=== PATIENT | female | born 2000 | race Caucasian/White ===

== ENCOUNTER 2018-07-09 23:51 | Emergency (ER) | payer BC, SELFPAY ==
[2018-07-09 23:52] VITALS: BP 112/72; PULSE 80; RESP 18; TEMP 36.7; O2SAT 96; BMI 23.8
--- NOTE | 2018-07-10 00:30 | ED.VIS.GEN ---
History of Present Illness Chief Complaint: Female C/O Informant: Patient Narrative: Stated she placed a tampon this morning at 11:00 if she felt like her. Was given start today. She has not been able to get it out this evening. She feels like it stuck too high. Current severity is mild. She is never had this happen before. Denies any other symptoms. No discharge. She stated that she cannot get out with her fingers. Past Medical History - Allergies and Home Meds Allergies/Adverse Reactions: Allergies No Known Allergies Allergy (Verified 07/09/18 23:54) Primary Care Physician: NOT,DEFINED [Primary Care Provider] - Past Medical History: None Surgical History: noncontributory Lives: With Family Smoking Status: Never smoker Alcohol: None Drugs: None Review of Systems General: Denies: Chills, Fever, Sweats Eyes: Denies: Visual changes - bilaterally, Diplopia ENT: Denies: Rhinorrhea, Sore throat Cardiovascular: Denies: Chest pain, Palpitations Respiratory: Denies: Dyspnea, Cough, Dyspnea on exertion Gastrointestinal: Denies: Abdominal pain, Nausea, Vomiting, Diarrhea, Melena, Hematochezia Genitourinary: Reports: - - Upon stuck in vagina. Denies: Dysuria, Hematuria, Frequency Musculoskeletal: Denies: Back pain, Extremity Pain Skin: Denies: Rash, Wounds Neurological: Denies: Headache, Weakness, Numbness Physical Exam Vital Signs/Narrative: Vital Signs Temp Pulse Resp BP Pulse Ox 07/09/18 23:52 98.0 F 80 18 112/72 96 General: Well nourished, Well developed, No Acute Distress Head: Normocephalic, Atraumatic Eyes: Perrl, EOMI ENT: Moist mucous membranes, No rhinorrhea Neck: Supple, Nontender Cardiovascular: Regular rate, Regular rhythm, No murmurs Respiratory: No distress, CTA bilaterally, Chest nontender Abdomen: Soft, Nontender, Nondistended, Normal bowel sounds : - - Speculum exam shows no foreign body. Cervix and vagina normal. Back: Nontender, Normal Inspection Extremities: Nontender, No edema Skin: Normal color, No rash Neurological: Alert, Oriented x3, Cranial nerves II-XII grossly intact, Normal Strength, Normal Sensation Psychological: Normal affect, Normal Mood Diagnostic/Tx/Re-eval - Medical Decision Making Patient reassured. No foreign body in her vagina. Normal exam. Will be discharged. ED Disposition - Plan for ED Patient: Disposition: Home or Assisted Living Diagnosis: No foreign body found on evaluation Instructions: ED Foreign Body Vaginal Referrals: NOT,DEFINED [Primary Care Provider] -
== END 2018-07-10 00:44 | disposition home or self-care (01) ==
PROVIDERS: Emergency Provider Emergency Medicine
DX: Z00.00 Encounter for general adult medical examination without abnormal findings (principal)
CPT/HCPCS: 99282

== ENCOUNTER 2019-05-08 11:23 | Emergency (ER) | payer BC, SELFPAY ==
[2019-05-08 11:23] VITALS: BP 118/29; PULSE 128; RESP 16; TEMP 36.6; O2SAT 99; BMI 23.7
--- NOTE | 2019-05-08 12:24 | ED.DCSUM_ITS ---
- ER Visit Summary Date of Service: 05/08/19 Chief Complaint: Sore throat History of Present Illness: The patient is a 19 F presenting with sore throat, rhinorrhea, nausea. Patient states this started on Friday. She had a sore throat. [facility] and was tested for strep and flu. She states these were both negative. Her symptoms have progressively worsened. She has now lost her voice. She complains of subjective fever, rhinorrhea, sore throat, cough, nausea. She complains of painful swallowing but no difficulty swallowing. She had one episode of vomiting today. She states she recently got over mono. She does have sick contacts. She denies other complaints. Physical Examination: Vitals are stable. Patient is afebrile. Heart rate 128. Alert no acute distress. HEENT exam pharyngeal erythema with no exudate. Uvula midline Neck is supple. No meningismus Lungs are clear and equal bilaterally. Heart is regular and tachycardic Abdomen is soft nontender nondistended. No guarding or rebound Extremities are unremarkable. Skin is warm and dry. No rash No focal neurologic deficit. Remainder of exam is unremarkable. Emergency Department Course and Treatment: Patient was given IV fluids, Decadron, Toradol, Zofran. Chemistries unremarkable. Rapid strep negative. Influenza B positive. hCG negative. On reevaluation, patient is feeling improved. She will follow-up with the wellness center. Advised return to ED for worsening complaints. Disposition: Discharge home Impression: Influenza This note was generated with [employer] dictation software. It may contain incorrect words, spelling, and punctuation that were not noted in review of the chart prior to signing ED Disposition - Plan for ED Patient: Instructions: INFLUENZA (Adult) Referrals: [facility] [Other]
[2019-05-08] MEDS: Ketorolac 15 MG/ML Vial IV (12:36)
[2019-05-08] MEDS: Ondansetron 4 MG/2 ML Vial IV (12:36)
[2019-05-08] MEDS: dexAMETHasone 4 MG Tablet PO (12:36)
[2019-05-08] MEDS: 0.9% Normal Saline 1,000 ML 1000 ML IV (12:37)
[2019-05-08 13:04] LABS: Anion Gap 4 (5-15); BUN 13 mg/dL (7-18); BUN/Creat Ratio 13.5 RATIO (10-20); Calcium,Total 9.1 mg/dL (8.5-10.1); Chloride 105 mmol/L (98-107); Creatinine, Serum 0.96 mg/dL (0.55-1.02); EST Glomerular Filtration Rate 78 mL/min (>60); Est Glom Filt Rate - Afr Amer 94 mL/min (>60); Estimated Creatinine Clearance 76.68 ml/min; Glucose 81 mg/dL (74-106); Sodium Level 137 mmol/L (136-145)
[2019-05-08 13:22] LABS: Internal QC Validated? YES +Cl - CLEAR BKGD; Pregnancy, Serum, hCG Quali. NEGATIVE Negative
--- NOTE | 2019-05-08 13:26 | ED.DEP ---
ED Disposition - Plan for ED Patient: Instructions: INFLUENZA (Adult) Referrals: [facility]ST[facility] OLVER[facility] [Other]
[2019-05-08 13:49] VITALS: BP 112/67; PULSE 94; RESP 16; O2SAT 98
== END 2019-05-08 13:52 | disposition home or self-care (01) ==
LOC: ED 12:22
PROVIDERS: Emergency Provider Emergency Medicine
DX: J11.1 Influenza due to unidentified influenza virus with other respiratory manifestations (principal)
CPT/HCPCS: 80048; 84703; 87804; 87880; 96361; 96374; 96375; 99284; J7030; A4216; J2405